=== PATIENT | female | born 1960 | race Caucasian/White ===

== ENCOUNTER → 2018-09-01 | Outpatient (CLI) | payer BC ==
[~2018-09-01] MED LIST: PHENERGAN W/CO120 ML PO; PREMARIN 0.60.625 M1 PO; ZITHROMAX 250M250 MG PO; ZOLOFT100 MG PO
== END ==
LOC: MC.RAD 10:09
DX: Z12.31 Encounter for screening mammogram for malignant neoplasm of breast (principal); N63.20 Unspecified lump in the left breast, unspecified quadrant

== ENCOUNTER → 2018-09-05 | Outpatient (CLI) | payer BC | LOC: MC.RAD 09:38 | DX: N63.20 Unspecified lump in the left breast, unspecified quadrant (principal) ==

== ENCOUNTER → 2019-08-03 | Outpatient (CLI) | payer BC ==
[~2019-08-03] VITALS: Ht 177.8 cm; Wt 92.8 kg
[~2019-08-03] MED LIST changes: +ALPHA LIPOIC A200 M2 PO; +FISH OIL1000 MG PO; +MAGNESIUM ELEM300 MG PO; +THE MEDICINE S200 M2 PO; +VITAMIND3 5000 PO; +ZOLOFT 100MG100 MG PO; -ZOLOFT100 MG PO
[2019-08-03 13:16] VITALS: BP 120/763; PULSE 720
== END ==
LOC: LIGHT 08:34
DX: E66.8 Other obesity (principal); Z98.84 Bariatric surgery status
CPT/HCPCS: G0463